=== PATIENT | female | born 1975 | race Two or more races ===

== ENCOUNTER 2017-04-03 14:06 | Emergency (ER) | payer OTHER ==
[~2017-04-03] VITALS: Ht 157.5 cm; Wt 63.1 kg
[2017-04-03 15:49] LABS: HEMOGLOBIN 11.1 g/dL (11.7-16.4)
[2017-04-03 15:56] LABS: BLOOD UREA NITROGEN 9 mg/dL (7-18)
[2017-04-03 17:33] LABS: HEMATOCRIT 34.6 % (34.6-47.8); WHITE BLOOD COUNT 9.4 x10^3/uL (3.4-10)
[2017-04-03 17:45] VITALS: BP 104/65
== END 2017-04-03 18:24 | disposition home or self-care (01) ==
LOC: ED 18:18
DX: O20.0 Threatened abortion (principal)
CPT/HCPCS: 36415; 76815; 80048; 82040; 84702; 85025; 86901; 99285